=== PATIENT | female | born 1965 | race Caucasian/White ===

== ENCOUNTER → 2017-03-01 | Outpatient (CLI) | payer BC ==
[~2017-03-01] MED LIST: CLIN300C3 PO; GLIP10TA13 PO; GLIP5TAB13 PO; IBUP-30 PO; LISI1TAB10 PO; LISI1TAB6 PO; METF500T8 PO; METO25TA PO; PRAV20TA PO; [UNRECOGNIZED DRUG - CODE] TOP; metformin; metoprolol; pravastatin
--- NOTE | 2017-03-01 18:54 | Diagnostic Imaging Report ---
EXAMINATION: Ultrasound of the neck. INDICATION: Lymphadenopathy. FINDINGS: The right thyroid lobe is 5.0 x 2.4 x 2.6 cm. The left lobe is 5.1 x 2.3 x 2.6 cm. Multiple nodules are seen in the thyroid gland. A dominant lesion measuring 1.9 x 1.5 x 1.7 cm in the left thyroid lobe is seen with internal vascularity noted. Other smaller thyroid nodules are seen including a 1.9 cm nodule in the lower aspect of the left thyroid lobe and subcentimeter nodules in the right lobe. The left parotid gland demonstrates a 1.0 x 0.6 x 0.6 cm lesion with lobulated borders and question of cystic appearance. There is also a lymph node in the parotid gland measuring up to 0.9 cm. The right parotid gland demonstrates no definite abnormality. IMPRESSION: 1. Enlarged thyroid gland with multiple nodules up to 1.9 cm in the left thyroid lobe suggestive of multinodular goiter. Ultrasound-guided biopsy of the dominant lesion is suggested. 2. Nonspecific small lesions in the left parotid gland up to 1 cm in size, likely related to intraparotid lymph nodes. Based on the size of these lesions, the etiology is likely benign. Correlate clinically and with followup exams, if needed. Dictated by: Dictated on workstation # [id number]
== END ==
LOC: RAD 13:34
PROVIDERS: ATTEND Student in an Organized Health Care Education/Training Program
DX: K11.8 Other diseases of salivary glands; E04.2 Nontoxic multinodular goiter
CPT/HCPCS: 76536